=== PATIENT | female | born 1975 | race Caucasian/White ===

== ENCOUNTER 2017-03-07 20:27 | Emergency (ER) | payer MEDICAID ==
[~2017-03-07] VITALS: Ht 165.1 cm; Wt 63.5 kg
[~2017-03-07 20:27] MED LIST: ARIP5TAB10 PO
[2017-03-07 20:30] VITALS: BP_SYST 147
== END 2017-03-07 21:39 | disposition left against medical advice (07) ==
LOC: SED 20:27
DX: R07.89 Other chest pain (principal); Z53.21 Procedure and treatment not carried out due to patient leaving prior to being seen by health care provider
CPT/HCPCS: 93005; 99281

== ENCOUNTER 2018-03-17 07:54 | Emergency (ER) | payer MEDICAID ==
[~2018-03-17] VITALS: Ht 165.1 cm; Wt 59.0 kg
[2018-03-17 08:03] VITALS: BP_SYST 127
--- NOTE | 2018-03-17 08:08 | NUR ---
Patient to ER bed 8 to gown for evaluation. Side rails up. Report given to Ruthann CARRANZA.
--- NOTE | 2018-03-17 08:15 | NUR ---
Pt complains of mid abdominal pain for the past 2 weeks with "spitting/vomiting" red tinged sputum once in the morning. Pt states drinks 10 vodkas a day for the past couple years. Denies fever, CP or SOB. No other injuries/complaints per pt or noted.
--- NOTE | 2018-03-17 08:20 | NUR ---
ER Dr. Lam at bedside examining patient.
[2018-03-17] MEDS ORDERED: NS 500 ML IV ONE (08:30)
[2018-03-17 08:37] LABS: BILIRUBIN,URINE NEGATIVE (NEGATIVE); BLOOD, URINE 1+ (NEGATIVE); CLARITY/URINE CLEAR (CLEAR); COLOR,URINE YELLOW (YELLOW); GLUCOSE,URINE NEGATIVE (NEGATIVE); KETONES,URINE NEGATIVE (NEGATIVE); LEUKOCYTE ESTERASE ,URINE NEGATIVE (NEGATIVE); NITRITE, URINE NEGATIVE (NEGATIVE); PROTEIN URINE NEGATIVE (NEGATIVE); UROBILINOGEN,URINE 0.2 (0.2-1.0)
[2018-03-17 08:46] LABS: BACTERIA,URINE RARE /HPF (None Seen); MUCUS,URINE 1+ /LPF (None Seen); WBC,URINE 0-3 /HPF (0-3)
--- NOTE | 2018-03-17 09:06 | NUR ---
Pt went to radiology in stable condition
[2018-03-17 09:08] LABS: BASOPHILS # (AUTO) 0.1 K/uL (0.0-0.2); BASOPHILS % (AUTO) 1.7 % (0.0-2.0); EOSINOPHILS # (AUTO) 0.1 K/uL (0.0-0.4); EOSINOPHILS % (AUTO) 1.5 % (0.0-4.0); HEMATOCRIT 38.8 % (36-48); HEMOGLOBIN 13.4 g/dL (12.0-16.0); LYMPHOCYTES # (AUTO) 1.5 K/uL (1.0-5.5); LYMPHOCYTES % (AUTO) 21.1 % (20.5-51.5); MEAN CORPUSCULAR HEMOGLOBIN 34 pg (27-31); MEAN CORPUSCULAR HGB CONC 35 % (32-36); MEAN CORPUSCULAR VOLUME 99 fL (79.0-98.0); MONOCYTES # (AUTO) 0.6 K/uL (0.0-1.0); MONOCYTES % (AUTO) 8.1 % (1.7-9.3); NEUTROPHILS # (AUTO) 4.7 K/uL (1.8-7.7); NEUTROPHILS % (AUTO) 67.6 % (40.0-70.0); PLATELET COUNT (AUTO) 296 K/uL (130-430); RED BLOOD CELL COUNT(AUTO) 3.91 MIL/uL (4.2-6.2); RED CELL DISTRIBUTION WIDTH 12.9 % (9.0-15.0)
--- NOTE | 2018-03-17 09:13 | NUR ---
Pt returned from radiology in stable condition
[2018-03-17 09:19] LABS: CALCIUM 8.4 mg/dL (8.4-11.0); CREATININE 0.62 mg/dL (0.55-1.30); POTASSIUM 3.9 mmol/L (3.5-5.1)
[2018-03-17 09:22] LABS: PROTHROMBIN TIME 10.1 SECS (9.5-12.5)
[2018-03-17 09:24] LABS: ALBUMIN 3.6 g/dL (3.4-4.8); TOTAL BILIRUBIN 0.9 mg/dL (0.0-1.0)
[2018-03-17 09:55] LABS: BARBITURATE, URINE NEGATIVE (NEG <=200); BENZODIAZEPINE, URINE NEGATIVE (NEG <=150); CANNABINOID, URINE NEGATIVE (NEG <=50); COCAINE, URINE NEGATIVE (NEG <=150); METHAMPHETAMINES SCREEN,URINE NEGATIVE (NEG <=500); OPIATE, URINE NEGATIVE (NEG <=100); PHENCYCLIDINE SCREEN,URINE NEGATIVE (NEG <=25); UR TRICYCLIC ANTIDEPRESSANTS NEGATIVE (NEG <=300); URINE AMPHETAMINE NEGATIVE (NEG <=500); URINE METHADONE NEGATIVE (NEG <=200); URINE OXYCODONE SCREEN NEGATIVE (NEG <=100); URINE PROPOXYPHENE SCREEN NEGATIVE (NEG <=300)
[2018-03-17 10:27] VITALS: BP_SYST 109
--- NOTE | 2018-03-17 10:29 | NUR ---
Patient given written and verbal discharge instructions and verbalizes understanding. ER MD discussed with patient the results and treatment provided. Patient in stable condition. ID arm band removed. IV catheter removed intact and dressing applied, no active bleeding. Rx of protonix given. Patient educated on pain management and to follow up with PMD. Pain Scale 0/10. Opportunity for questions provided and answered. Medication side effect fact sheet provided.
== END 2018-03-17 10:27 | disposition home or self-care (01) ==
LOC: SED 07:54
DX: K29.20 Alcoholic gastritis without bleeding (principal); F17.200 Nicotine dependence, unspecified, uncomplicated; R03.0 Elevated blood-pressure reading, without diagnosis of hypertension; Z90.49 Acquired absence of other specified parts of digestive tract
CPT/HCPCS: 36415; 74176; 80053; 80307; 81000; 81025; 83605; 83690; 85025; 85610; 87040; 93005; 96360; 99285; J7040

== ENCOUNTER 2018-06-29 21:41 | Emergency (ER) | payer MEDICAID ==
[~2018-06-29] VITALS: Ht 165.1 cm; Wt 59.0 kg
[2018-06-29 21:45] VITALS: BP_SYST 147
--- NOTE | 2018-06-29 21:57 | NUR ---
Patient placed in room, at bedside. Skin is reddened in patches, raised bumps noted throughout. States it has been going on for approx two weeks with increased spreading to all body parts as of today. Denies new medications, otc or prescribed. Denies any fevers, reports ongoing loose stools for two months for which she has seen her primary physician and has a follow up on , 07/01.
--- NOTE | 2018-06-29 21:57 | NUR ---
ER Dr. Claire at bedside examining patient.
--- NOTE | 2018-06-29 22:03 | NUR ---
Patient states generalized rash has been worsening and also states episodes of diarrhea. Patient states she started taking new HTN medication prior around time symptoms began. Patient states she drinks ETOH daily and has taken Cocaine today. Patient states she has a follow up appointment on 07/01/18 with PCP for test results. Patient states she is concerned for possible colon CA d/t family history.
--- NOTE | 2018-06-29 22:03 | NUR ---
Christos ernst in [facility] - 06/29/18 at 2206 by SDEDBK BROOKE Claire at bedside for medical evaluation.
--- NOTE | 2018-06-29 22:13 | NUR ---
patient and spouse out to smoke. patient stated to md and second nurse she has started new unknown hypertension medication. rash started at that time.
[2018-06-29] MEDS ORDERED: LIDOCAINE 1% 10 MG/ML, 20 ML MDV INJ ONE (22:15)
--- NOTE | 2018-06-29 22:19 | NUR ---
patient found in waiting room. states she doesn't want to return to room. left ED, eloped
--- NOTE | 2018-06-29 22:20 | NUR ---
Patient eloped at this time.
== END 2018-06-29 22:20 | disposition home or self-care (01) ==
LOC: SED 21:41
DX: L23.89 Allergic contact dermatitis due to other agents (principal); F10.129 Alcohol abuse with intoxication, unspecified; F19.10 Other psychoactive substance abuse, uncomplicated; I10 Essential (primary) hypertension; F41.9 Anxiety disorder, unspecified
CPT/HCPCS: 99283